=== PATIENT | male | born 1945 | race Caucasian/White ===

== ENCOUNTER 2019-07-12 08:58 | Day surgery (SDC) | payer MEDICARE ==
[2019-07-12] MEDS ORDERED: CYCLOBENZAPRINE 10 MG TAB PO (10:00)
[2019-07-12] MEDS ORDERED: ONDANSETRON 4 MG INJ IV ×2 (10:00→14:00)
[2019-07-12] MEDS ORDERED: DIPHENHYDRAMINE 50 MG INJ IV ×2 (10:00→14:00)
[2019-07-12] MEDS ORDERED: HYDROCODONE/APAP (10/325) TAB PO (10:00)
[2019-07-12] MEDS ORDERED: CEPASTAT LOZENGE MT (10:00)
[2019-07-12] MEDS ORDERED: NALOXONE (0.4 MG/ML) INJ IV (10:00)
[2019-07-12] MEDS ORDERED: DIPHENHYDRAMINE 25 MG CAP PO (10:00)
[2019-07-12] MEDS ORDERED: MAGNESIUM HYDROXIDE 30ML CUP PO (10:00)
[2019-07-12] MEDS ORDERED: BISACODYL 10 MG SUPP PR (10:00)
[2019-07-12] MEDS ORDERED: HYDROmorphONE 0.5 MG/0.5 ML SYG IV (10:00)
[2019-07-12] MEDS ORDERED: ACETAMINOPHEN 325 MG TAB PO (10:00)
[2019-07-12] MEDS: HEMOSTATIC MATRIX SYG ZFS ×2 (10:27→11:20)
[2019-07-12] MEDS ORDERED: SEVOFLURANE 15 MIN (10:30)
[2019-07-12] MEDS ORDERED: ONDANSETRON 4 MG INJ (10:30)
[2019-07-12] MEDS: CEFAZOLIN 1 GM/50 ML (PMX) 50 ML IVPB ×2 (10:34→17:02)
[2019-07-12] MEDS ORDERED: MIDAZOLAM 1 MG/ML 2 ML INJ (10:36)
[2019-07-12] MEDS ORDERED: CA CHLORIDE 10% 10 ML SYRINGE (10:52)
[2019-07-12] MEDS: BUPIVACAINE 0.5%/EPI (SDV) 30 ML INJ (11:00)
[2019-07-12] MEDS ORDERED: morphine 10 MG INJ ×2 (11:14→12:02)
[2019-07-12] MEDS: THROMBIN 5000 UNIT (RECOTHROM) VIAL ×2 (11:20→11:36)
[2019-07-12] MEDS: POLYMYXIN/BACITRACIN 1L IRRIG (11:21)
[2019-07-12] MEDS: HEPARIN 1000 UNITS/ML 10 ML INJ (11:21)
[2019-07-12] MEDS ORDERED: GELATIN SIZE 100 SPONGE (11:29)
[2019-07-12] MEDS: GELATIN SIZE 100 SPONGE (11:35)
[2019-07-12] MEDS ORDERED: ETOMIDATE 20 MG INJ (13:07)
[2019-07-12] MEDS ORDERED: LIDOCAINE 2% (SDV) 5 ML INJ (13:07)
[2019-07-12] MEDS ORDERED: ROCURONIUM 50 MG INJ ×2 (13:07)
[2019-07-12] MEDS ORDERED: NEOSTIGMINE 3 MG/3 ML SYRINGE (13:12)
[2019-07-12] MEDS ORDERED: GLYCOPYRROLATE 0.4 MG INJ (13:12)
[2019-07-12] MEDS ORDERED: CEFAZOLIN 1 GM INJ (13:12)
[2019-07-12] MEDS: LACTATED RINGER'S 1,000 ML IV (13:28)
[2019-07-12] MEDS ORDERED: hydrALAzine 20 MG INJ IV (14:00)
[2019-07-12] MEDS ORDERED: LABETALOL HCL 20MG INJ IV (14:00)
[2019-07-12] MEDS ORDERED: METOCLOPRAMIDE 10 MG INJ IV (14:00)
[2019-07-12] MEDS ORDERED: HYDROmorphONE 1 MG/5 ML IV SYRINGE IV ×2 (14:00)
[2019-07-12] MEDS ORDERED: FENTAnyl 50 MCG/ML VIAL IV (14:00)
[2019-07-12] MEDS ORDERED: MEPERIDINE 25 MG INJ IV (14:00)
[2019-07-12] MEDS: D5W-0.45 NACL + KCL 20 MEQ 1,000 ML IV ×2 (15:20→16:57)
[2019-07-12] MEDS: LISINOPRIL 20 MG TAB PO (15:20)
[2019-07-12] MEDS: HYDROCODONE/APAP (10/325) TAB PO (15:23)
[2019-07-12] MEDS ORDERED: VERAPAMIL (SR) 180 MG TAB PO (21:00)
[2019-07-12] MEDS ORDERED: DOCUSATE SODIUM 100 MG CAP PO (21:00)
[2019-07-13] MEDS ORDERED: FOLIC ACID 0.4 MG TAB PO (09:00)
[2019-07-13] MEDS ORDERED: CHOLECALCIFEROL 1,000 UNIT TAB PO (09:00)
== END 2019-07-12 18:50 | disposition home or self-care (01) ==
LOC: SDS 08:58 → REC 09:56 → MS1 14:22 → REC 14:22 → SDS 09:56 → MS1 14:40 → SDS 18:50
DX: M51.26 Other intervertebral disc displacement, lumbar region (principal); M48.061 Spinal stenosis, lumbar region without neurogenic claudication; I10 Essential (primary) hypertension; I25.10 Atherosclerotic heart disease of native coronary artery without angina pectoris
CPT/HCPCS: 63030; 72020; 86999; 88304; 97161